=== PATIENT | female | born 1965 | race Two or more races ===

== ENCOUNTER → 2023-02-24 | Outpatient (CLI) | payer BC ==
[2023-02-25 15:26] LABS: Stool Occult Bld Immuno 1 Positive (NEGATIVE)
== END ==
LOC: LAB 12:00 → LAB SHORT 12:00 → EDSTATUS 02-24 17:25 → LAB FUT 02-24 17:25
PROVIDERS: Nurse Practitioner Family
DX: Z12.11 Encounter for screening for malignant neoplasm of colon (principal)
CPT/HCPCS: G0328